=== PATIENT | male | born 1960 | race Two or more races ===

== ENCOUNTER 2020-01-09 20:32 | Emergency (ER) | payer OTHER ==
[2020-01-09] MEDS ORDERED: ONDANSETRON HCL INJ/PF 4 MG/2 ML SDV IV ONE (20:51)
--- NOTE | 2020-01-09 20:54 | ER Document Report ---
ED Medical Screen (RME) - General Chief Complaint: Abdominal Pain Stated Complaint: LOWER ABDOMINAL PAIN/SYNCOPE Time Seen by Provider: 01/09/20 20:45 Mode of Arrival: Wheelchair Information source: Patient Notes: Patient reports developing lower abdominal pain this evening. Patient's reports and vomiting x1 episode. Patient vomited about 700 mL's per the RN. Patient states that abdominal pain has improved after vomiting although has not resolved. Patient states that pain does radiate into the scrotum. Patient denies any diarrhea. Patient denies any chest pain or shortness of breath. Patient does state that he feels faint. Patient is bradycardic in triage with heart rate 40s to 50s. states that patient never goes to a doctor, but that his heart rate is usually in the 70s. I have greeted and performed a rapid initial assessment of this patient. A comprehensive ED assessment and evaluation of the patient, analysis of test results and completion of the medical decision making process will be conducted by additional ED providers. Physical Exam - Vital signs Vitals: Temp Pulse Resp BP Pulse Ox 97.7 F 48 L 18 137/57 H 93 01/09/20 20:39 01/09/20 20:39 01/09/20 20:39 01/09/20 20:39 01/09/20 20:39 - General General appearance: Alert Notes: Lower abdominal tenderness - Cardiovascular Rhythm: Bradycardia Heart sounds: S1 appreciated, S2 appreciated Course - Vital Signs Vital signs: Temp Pulse Resp BP Pulse Ox 97.7 F 48 L 18 137/57 H 93 01/09/20 20:39 01/09/20 20:39 01/09/20 20:39 01/09/20 20:39 01/09/20 20:39
--- NOTE | 2020-01-09 21:23 | EKG REPORT ---
SEVERITY:- ABNORMAL ECG - SINUS BRADYCARDIA PROBABLE LVH WITH SECONDARY REPOL ABNRM : Confirmed by: Elisa Parish MD 09-Jan-2020 21:22:03
[2020-01-09 21:59] LABS: ABSOLUTE BASOPHILS # (AUTO) 0.1 10^3/uL (0.0-0.2); ABSOLUTE EOSINOPHILS # (AUTO) 0.3 10^3/uL (0.0-0.6); ABSOLUTE LYMPHOCYTES (AUTO) 2.1 10^3/uL (0.5-4.7); ABSOLUTE MONOCYTES (AUTO) 0.7 10^3/uL (0.1-1.4); ABSOLUTE NEUT (AUTO) 5.6 10^3/uL (1.7-8.2); BASOPHILS % (AUTO) 1.3 % (0-2); EOSINOPHILS % (AUTO) 3.3 % (0-6); MEAN CORPUSCULAR HEMOGLOBIN 29.5 pg (27.0-33.4); MEAN CORPUSCULAR HGB CONC 34.1 g/dL (32.0-36.0); MEAN CORPUSCULAR VOLUME 87 fl (80-97); MONOCYTES % (AUTO) 8.3 % (3-13); PLATELET COUNT 261 10^3/uL (150-450); RED BLOOD COUNT 5.09 10^6/uL (4.35-5.55); RED CELL DISTRIBUTION WIDTH 15.5 % (11.5-14.0); SEGMENTED NEUTROPHILS % (AUTO) 63.1 % (42-78); TOTAL CELLS COUNTED % (AUTO) 100 %; WHITE BLOOD COUNT 8.9 10^3/uL (4.0-10.5)
[2020-01-09 22:15] LABS: ALBUMIN 4.2 g/dL (3.5-5.0); ALKALINE PHOSPHATASE 89 U/L (38-126); ANION GAP 7 (5-19); ASPARTATE AMINO TRANSFERASE 19 U/L (17-59); BILIRUBIN,DIRECT 0.2 mg/dL (0.0-0.4); BILIRUBIN,TOTAL 0.5 mg/dL (0.2-1.3); BLOOD UREA NITROGEN 25 mg/dL (7-20); CALCIUM 9.1 mg/dL (8.4-10.2); CARBON DIOXIDE 30 mmol/L (22-30); CHLORIDE 104 mmol/L (98-107); GLUCOSE 171 mg/dL (75-110); POTASSIUM 3.4 mmol/L (3.6-5.0); TOTAL PROTEIN 6.9 g/dL (6.3-8.2)
--- NOTE | 2020-01-09 22:21 | RADIOLOGY REPORT (SQ) ---
EXAM DESCRIPTION: XR CHEST 1 VIEW COMPLETED DATE/TME: 01/09/2020 20:51 CLINICAL HISTORY: 59 years, Male, bradycardia, lightheaded COMPARISON: None. NUMBER OF VIEWS: 1 TECHNIQUE: Portable chest LIMITATIONS: None. FINDINGS: The heart size is normal. Lungs are clear. No pneumothorax IMPRESSION: No acute cardiopulmonary process copyright 2011 [employer]- All Rights Reserved
[2020-01-09 22:54] LABS: APPEARANCE,URINE CLEAR; BILIRUBIN,URINE NEGATIVE (NEGATIVE); COLOR,URINE YELLOW; GLUCOSE, URINE NEGATIVE (NEGATIVE); KETONES,URINE NEGATIVE (NEGATIVE); LEUKOCYTE ESTERASE,URINE NEGATIVE (NEGATIVE); NITRITE,URINE NEGATIVE (NEGATIVE); PROTEIN,URINE NEGATIVE (NEGATIVE); URINE SPECIFIC GRAVITY 1.025; UROBILINOGEN,URINE NEGATIVE mg/dL (<2.0)
[2020-01-09] MEDS ORDERED: MORPHINE SULFATE 10 MG/ML INJ IV ONE ×2 (22:56→23:19)
--- NOTE | 2020-01-09 23:00 | ER Document Report ---
ED GI/ - General Chief Complaint: Abdominal Pain Stated Complaint: LOWER ABDOMINAL PAIN/SYNCOPE Time Seen by Provider: 01/09/20 20:45 Mode of Arrival: Wheelchair Notes: 59-year-old man brought to the emergency department with a complaint of lower abdominal pain. States that he was at a wedding dinner and after eating he suddenly developed severe pain in his lower abdominal region. He has a history of a left inguinal hernia and states that the pain is radiating from that area into his left scrotum. He denies nausea or vomiting, fever or other associated symptoms. - Related Data Home Medications: cardvedilol and lisinopril Past Medical History - General Information source: Patient - Social History Smoking Status: Current Every Day Smoker Patient has suicidal ideation: No Patient has homicidal ideation: No Review of Systems - Review of Systems Notes: Constitutional: Negative for fever. HENT: Negative for sore throat. Eyes: Negative for visual changes. Cardiovascular: Negative for chest pain. Respiratory: Negative for shortness of breath. Gastrointestinal: + abdominal pain,+hernia Genitourinary: Negative for dysuria. Musculoskeletal: Negative for back pain. Skin: Negative for rash. Neurological: Negative for headaches, weakness or numbness. 10 point ROS negative except as marked above and in HPI. Physical Exam - Vital signs Vitals: Temp Pulse Resp BP Pulse Ox 97.7 F 48 L 18 137/57 H 93 01/09/20 20:39 01/09/20 20:39 01/09/20 20:39 01/09/20 20:39 01/09/20 20:39 - Notes Notes: PHYSICAL EXAMINATION: Physical Exam: General: Well-nourished well-developed 59-year-old man in moderate distress secondary to lower abdominal pain HEENT: NC/AT, pupils equal round and reactive to light, MM moist,nares clear, Neck: supple, no adenopathy, no masses. Lungs: clear, no wheezing, no rales no rhonchi CVS: Regular rate and rhythm no murmur gallop or rub Abdomen: Soft active tenderness in the lower abdominal region left greater than right. There is a large left inguinal hernia which is bulging and difficult to reduce. No masses, no hepatosplenomegaly Ext: No edema clubbing or cyanosis. Neuro: Alert and responsive, moving all 4 extremities on command, cranial nerves intact. Skin: Intact no open lesions, no rash PSYCH: Normal mood, normal affect. Course - Re-evaluation Re-evalutation: 01/10/20 00:12 The inguinal hernia was reduced with minimal difficulty, improve and reduction of pain. Patient tolerated the procedure without difficulty. He was given 2 mg of morphine prior to reducing the hernia. Review of his lab data reveals a negative cardiac enzyme and CMP, CBC. Chest x-ray was negative and the ultrasound of the scrotum reveals no findings associated with torsion. The patient's notes that he was lifting a heavy speaker at the wedding dinner and believes that it was that activity which led to the hernia protruding more than normal. I have cautioned the patient with regards to heavy lifting and asked that he follow-up with his doctor when he returns to [place] regarding repair of the inguinal hernia. The patient and his acknowledges understanding of this plan and are in agreement. - Vital Signs Vital signs: Temp Pulse Resp BP Pulse Ox 99.0 F 48 L 21 H 164/65 H 93 01/09/20 21:35 01/09/20 20:39 01/10/20 00:00 01/09/20 23:43 01/10/20 00:00 - Laboratory Result Diagrams: 01/09/20 21:39 01/09/20 21:39 Laboratory results interpreted by me: 01/09/20 01/09/20 01/09/20 21:39 21:39 22:16 RDW 15.5 H Potassium 3.4 L BUN 25 H Glucose 171 H Urine Blood SMALL H - Diagnostic Test Radiology reviewed: Image reviewed - Chest x-ray: No acute cardiopulmonary findings., Reports reviewed - Scrotal ultrasound: No torsion noted. Good blood flow. - EKG Interpretation by Me Rate: Bradycardia - Rate of 79, sinus bradycardia with LVH and secondary repolarization abnormality. Interpretation EKG abnormal electrocardiogram. Discharge - Discharge Clinical Impression: Lower abdominal pain Inguinal hernia Qualifiers: Obstruction and gangrene presence: without obstruction or gangrene Laterality: unilateral Recurrence: non-recurrent Qualified Code(s): K40.90 - Unilateral inguinal hernia, without obstruction or gangrene, not specified as recurrent Condition: Good Disposition: HOME, SELF-CARE Instructions: Hernia ([facility]) Additional Instructions: You were diagnosed with abdominal pain secondary to an inguinal hernia tonight. Please avoid heavy lifting and straining as it may precipitate the hernia bulging and scratching more than normal. Please follow-up with your physician with regards to a planned repair of the hernia. You may use Tylenol or ibuprofen for pain. Return to the emergency department if the hernia bulges out and you are unable to reduce it or if you have other concerns.
--- NOTE | 2020-01-09 23:08 | RADIOLOGY REPORT (SQ) ---
EXAM DESCRIPTION: US SCROTUM COMPLETED DATE/TME: 01/09/2020 20:52 CLINICAL HISTORY: 59 years, Male, low abd pain/scrotal pain COMPARISON: None. TECHNIQUE: Transverse longitudinal sonographic images of the testes LIMITATIONS: None. FINDINGS: The right testicle measures 2.8 x 1.9 x 2.9 cm, the left 3.4 x 2.0 x 2.2 cm. Doppler and spectral analysis with color flow shows normal flow to each testicle. Negative for intratesticular mass. In the region of the clinical/palpable abnormality in the left inguinal region is a complex mixed cystic and solid nodular area measuring 5.8 x 3.4 x 4.5 cm. This could reflect abnormal lymph node. Small hernia with fluid and bowel could also have this appearance. The epididymides are unremarkable IMPRESSION: No sonographic evidence for torsion. Complex mixed echogenicity area in the left inguinal region could reflect herniated loop of bowel with fluid. Other etiologies are not excluded. Correlate with physical exam. copyright 2010 [employer]- All Rights Reserved
[2020-01-10 00:33] VITALS: BP 131/53
== END 2020-01-10 00:31 | disposition home or self-care (01) ==
LOC: ER 20:32
DX: R10.9 Unspecified abdominal pain (principal)
CPT/HCPCS: 93005; 36415; 83605; 83690; 85025; 80053; 81001; 84484; 71045; 76870; 93976; 93010; J2270; 96374; 99285